=== PATIENT | male | born 1955 | race Caucasian/White ===

== ENCOUNTER 2020-04-15 11:34 | Inpatient (IN) | payer OTHER ==
[2020-04-15 12:44] LABS: Protime INR 0.9
[2020-04-15 12:45] LABS: Basophils % 0.8 % (0-1.3); Hematocrit 44.3 % (39.6-49.0); Lymphocytes % 24.3 % (15.3-44.8); RBC Red Blood Cell Count 5.07 M/uL (4.33-5.43)
[2020-04-15] MEDS ORDERED: ASPIRIN 81 MG CHEWABLE TABLET ONE (12:56)
--- NOTE | 2020-04-15 12:57 | RAD REPORT ---
EXAM DESCRIPTION: RAD - Chest Single View - 04/15/2020 12:49 pm CLINICAL HISTORY: CHEST PAIN COMPARISON: August 2011 TECHNIQUE: AP portable chest image was obtained 04/15/2020 12:49 pm . FINDINGS: Lung volumes are low accentuating interstitial pattern. No mass or consolidation. No signi ficant failure or volume overload. Minimal interstitial edema or infiltrate could be masked by the lo w lung volumes. Heart and vasculature are normal. No measurable pleural effusion and no pneumothorax. No acute bony abnormality seen. No acute aortic findings suspected. IMPRESSION: No acute cardiopulmonary process. Low lung volumes accentuate interstitial pattern potentially masking very minimal degrees of edema or infiltrate.
[2020-04-15 13:15] LABS: Albumin 3.8 g/dL (3.4-5.0); Bilirubin Direct 0.1 mg/dL (0-0.2); Bilirubin Total 0.5 mg/dL (0.2-1.0); Magnesium 1.9 mg/dL (1.8-2.4); Potassium 3.6 mmol/L (3.5-5.1); Protein, Total 6.8 g/dL (6.4-8.2)
[2020-04-15 13:16] LABS: Troponin (Emerg Dept Use Only) 1.35 ng/mL (0.0-0.045)
--- NOTE | 2020-04-15 14:07 | EDPHYS ---
Physician Documentation [facility] Name: Madhav Mendez Age: 65 yrs Sex: Male : 1955 Arrival Date: 04/15/2020 Time: 11:36 Bed 6 Private MD: Madhav Israel E ED Physician Chavo Avila HPI: 04/15 14:57 This 65 yrs old Male presents to ER via Ambulatory with complaints of Chest kdr Pain. 14:57 The patient or guardian reports chest pain that is located primarily in the substernal kdr area, anterior chest wall. Onset: pain has been intermittent with radiation down the posterior aspect of both arms with exertion. 17:29 The pain radiates to both arms, both shoulders. Associated signs and symptoms: kdr Pertinent positives: nausea, shortness of breath, Pertinent negatives: abdominal pain, cough. The chest pain is described as aching, burning, dull. Duration: The patient or guardian reports multiple episodes, that are intermittent, that wax and wane, with no pattern. Modifying factors: The symptoms are alleviated by remaining still, the symptoms are aggravated by activity, exertion, movement, walking. Severity of pain: At its worst the pain was mild moderate just prior to arrival, in the emergency department the pain is unchanged. The patient has not experienced similar symptoms in the past. The patient has not recently seen a physician. Historical: - Allergies: 11:47 No Known Allergies; iw - Home Meds: 11:47 atorvastatin 20 mg oral tab 1 tab once daily [Active]; metformin 500 mg Oral Tb24 1 tab iw once daily [Active]; losartan-hydrochlorothiazide 100-25 mg oral tab once daily [Active]; - PMHx: 11:47 Hypertension; Hyperlipidemia; Diabetes - NIDDM; iw - PSHx: 11:47 hemorrhoid; Knee surgery; iw - Immunization history:: Adult Immunizations not up to date. - Social history:: Smoking status: Patient reports the use of cigarette tobacco products, smokes one pack cigarettes per day. ROS: 17:29 Constitutional: Negative for fever, chills, and weight loss, Eyes: Negative for injury, kdr pain, redness, and discharge, ENT: Negative for injury, pain, and discharge, Neck: Negative for injury, pain, and swelling, Respiratory: Negative for shortness of breath, cough, wheezing, and pleuritic chest pain, Abdomen/GI: Negative for abdominal pain, nausea, vomiting, diarrhea, and constipation, Back: Negative for injury and pain, : Negative for injury, bleeding, discharge, and swelling, MS/Extremity: Negative for injury and deformity, Skin: Negative for injury, rash, and discoloration, Neuro: Negative for headache, weakness, numbness, tingling, and seizure activity. Psych: Negative for depression, anxiety, suicide ideation, homicidal ideation, and hallucinations, Allergy/Immunology: Negative for hives, rash, and allergies, Endocrine: Negative for neck swelling, polydipsia, polyuria, polyphagia, and marked weight changes, Hematologic/Lymphatic: Negative for swollen nodes, abnormal bleeding, and unusual bruising. 17:29 Cardiovascular: Positive for chest pain, Negative for edema, orthopnea, palpitations, paroxysmal nocturnal dyspnea. Exam: 11:55 ECG was reviewed by the Attending Physician. kdr 17:29 Constitutional: This is a well developed, well nourished patient who is awake, alert, kdr and in no acute distress. Head/Face: Normocephalic, atraumatic. Eyes: Pupils equal round and reactive to light, extra-ocular motions intact. Lids and lashes normal. Conjunctiva and sclera are non-icteric and not injected. Cornea within normal limits. Periorbital areas with no swelling, redness, or edema. Neck: Trachea midline, no thyromegaly or masses palpated, and no cervical lymphadenopathy. Supple, full range of motion without nuchal rigidity, or vertebral point tenderness. No Meningismus. Chest/axilla: Normal chest wall appearance and motion. Nontender with no deformity. No lesions are appreciated. Cardiovascular: Regular rate and rhythm with a normal S1 and S2. No gallops, murmurs, or rubs. Normal PMI, no JVD. No pulse deficits. Respiratory: Lungs have equal breath sounds bilaterally, clear to auscultation and percussion. No rales, rhonchi or wheezes noted. No increased work of breathing, no retractions or nasal flaring. Abdomen/GI: Soft, non-tender, with normal bowel sounds. No distension or tympany. No guarding or rebound. No evidence of tenderness throughout. Back: No spinal tenderness. No costovertebral tenderness. Full range of motion. Skin: Warm, dry with normal turgor. Normal color with no rashes, no lesions, and no evidence of cellulitis. MS/ Extremity: Pulses equal, no cyanosis. Neurovascular intact. Full, normal range of motion. Neuro: Awake and alert, GCS 15, oriented to person, place, time, and situation. Cranial nerves II-XII grossly intact. Motor strength 5/5 in all extremities. Sensory grossly intact. Cerebellar exam normal. Normal gait. Psych: Awake, alert, with orientation to person, place and time. Behavior, mood, and affect are within normal limits. Vital Signs: 11:41 BP 122 / 74; Pulse 96; Resp 18; Temp 98.2; Pulse Ox 96% on R/A; Weight 94.8 kg; Height iw 5 ft. 10 in. (177.80 cm); Pain 0/10; 12:27 BP 111 / 71; Pulse 109; Resp 15; Pulse Ox 98% ; bp 13:35 BP 118 / 92; Pulse 105; Resp 26; Pulse Ox 98% ; bp 14:27 BP 106 / 76; Pulse 98; Resp 24; Pulse Ox 97% ; rb1 16:42 BP 120 / 78; Pulse 93; Resp 20; Pulse Ox 98% ; bp 11:41 Body Mass Index 29.99 (94.80 kg, 177.80 cm) iw MDM: 14:05 Patient medically screened. kdr 17:29 Data reviewed: vital signs, nurses notes, lab test result(s), EKG, radiologic studies. kdr Counseling: I had a detailed discussion with the patient and/or guardian regarding: the historical points, exam findings, and any diagnostic results supporting the discharge/admit diagnosis, lab results, radiology results, the need for outpatient follow up. 04/15 11:47 Order name: Basic Metabolic Panel; Complete Time: 14:00 kdr 04/15 11:47 Order name: CBC with Diff; Complete Time: 14: kdr 04/15 11:47 Order name: LFT's; Complete Time: 14:00 kdr 04/15 11:47 Order name: Magnesium; Complete Time: 14:00 kdr 04/15 11:47 Order name: NT PRO-BNP; Complete Time: 14:00 kdr 04/15 11:47 Order name: PT-INR; Complete Time: 14:00 kdr 04/15 11:47 Order name: Troponin (emerg Dept Use Only); Complete Time: 14:00 kdr 04 11:47 Order name: XRAY Chest (1 view); Complete Time: 14:00 kdr /04 11:47 Order name: EKG; Complete Time: 11:48 kdr 04 11:47 Order name: Cardiac monitoring; Complete Time: 12:17 kdr /04 12:37 Order name: DD; Complete Time: 14:00 kdr 04/15 11:47 Order name: EKG - Nurse/Tech; Complete Time: 11:50 kdr 04 11:47 Order name: IV Saline Lock; Complete Time: 12:17 kdr 04 11:47 Order name: Labs collected and sent; Complete Time: 12:17 kdr 04/15 11:47 Order name: O2 Per Protocol; Complete Time: 11:50 kdr 04/15 11:47 Order name: O2 Sat Monitoring; Complete Time: 11:50 kdr 04 15:22 Order name: NPO; Complete Time: 15:22 bp EC:55 Rate is 101 beats/min. Rhythm is irregular, Sinus arrythmia with PACs. QRS Hayes is kdr Normal. [place] interval is normal. QRS interval is normal. QT interval is normal. Clinical impression: NSR w/ Non-specific ST/T Changes, Sinus arrythmia, and Sinus tachycardia. Administered Medications: 12:45 Drug: Aspirin Chewable Tablet 324 mg Route: PO; rb1 16:42 Follow up: Response: No adverse reaction bp 16:00 Drug: HEParin 5000 units {Co-Signature: aa5 (Ivonne Magallon RN).} Route: IV; Rate: bp bolus; Site: right forearm; 16:41 Follow up: IV Status: Completed infusion; IV Intake: 1ml bp 16:01 Drug: Heparin ([place] Drip) 12 units/kg/hr - (HEParin 22257 units, D5W 500 ml) bp {Co-Signature: aa5 (Ivonne Magallon RN).} Route: IV; Rate: calculated rate; Site: right forearm; 16:42 Follow up: IV Status: Infusion continued upon admission bp Disposition: 04/15/20 14:05 Hospitalization ordered by Nimesh Omer for Observation. Preliminary diagnosis are Other chest pain, Acute coronary syndrome. - Bed requested for [facility] ER HOLD. - Status is Observation. bp - Condition is Fair. - Problem is new. - Symptoms have improved. Signatures: Dispatcher [employer] EDMS Chavo Avila MD MD kdr Marisol Hicks, RN RN Luis Fernando Cole em1 Leeanna Larson, RN RN rb1 Vince Alexander, SOLITARIO RN bp Ivonne Magallon RN aa5 Corrections: (The following items were deleted from the chart) 15:57 14:05 Hospitalization Ordered by Nimesh Omer DO for Observation. Preliminary em1 diagnosis is Other chest pain; Acute coronary syndrome. Bed requested for Telemetry/MedSurg (observation). Status is Observation. Condition is Fair. Problem is new. Symptoms have improved. kdr 17:07 15:57 04/15/2020 14:05 Hospitalization Ordered by Nimesh Omer DO for Observation. bp Preliminary diagnosis is Other chest pain; Acute coronary syndrome. Bed requested for [facility] ER HOLD. Status is Observation. Condition is Fair. Problem is new. Symptoms have improved. em1
--- NOTE | 2020-04-15 14:07 | ER ---
Nurse's Notes [facility] Name: Madhav Mendez Age: 65 yrs Sex: Male : 1955 Arrival Date: 04/15/2020 Time: 11:36 Bed 6 Private MD: Madhav Israel E Diagnosis: Other chest pain;Acute coronary syndrome Presentation: 04/15 11:41 Chief complaint: Patient states: chest pains and SOB, pain down arms, intermittent iw since Sunday, was seen at cardiovascular clinic today and told he had Afib, pain described as tension and is midsternal, also feels burning sensation down both arms, and is SOB on exertion. Coronavirus screen: Proceed with normal triage. Patient denies a cough. Patient denies shortness of breath or difficulty breathing. Patient denies measured and/or subjective temperature greater than 100.4F prior to today's visit. Patient denies travel on a cruise ship or to a country the [facility] currently lists as an affected area. Patient denies contact with known and/or suspected case of COVID-19. Ebola Screen: Patient negative for fever greater than or equal to 101.5 degrees Fahrenheit, and additional compatible Ebola Virus Disease symptoms Patient denies exposure to infectious person. Patient denies travel to an Ebola-affected area in the 21 days before illness onset. No symptoms or risks identified at this time. Initial Sepsis Screen: Does the patient meet any 2 criteria? No. Patient's initial sepsis screen is negative. Does the patient have a suspected source of infection? No. Patient's initial sepsis screen is negative. Risk Assessment: Do you want to hurt yourself or someone else? Patient reports no desire to harm self or others. Onset of symptoms was April 08, 2020. 11:41 Method Of Arrival: Ambulatory iw 11:41 Acuity: RAMOS 3 iw Triage Assessment: 11:47 General: Appears in no apparent distress. uncomfortable, Behavior is cooperative, bp appropriate for age, anxious. Pain: Complains of pain in chest. EENT: No deficits noted. Neuro: No deficits noted. Cardiovascular: Chest pain is described as Pain is 6 out of 10 on a pain scale. quality is pressure, is located in substernal area radiates to bilateral arm(s) began 1 day ago. Respiratory: No deficits noted. GI: No signs and/or symptoms were reported involving the gastrointestinal system. : No signs and/or symptoms were reported regarding the genitourinary system. Derm: No deficits noted. Musculoskeletal: No deficits noted. Historical: - Allergies: 11:47 No Known Allergies; iw - Home Meds: :47 atorvastatin 20 mg oral tab 1 tab once daily [Active]; metformin 500 mg Oral Tb24 1 tab iw once daily [Active]; losartan-hydrochlorothiazide 100-25 mg oral tab once daily [Active]; - PMHx: 11:47 Hypertension; Hyperlipidemia; Diabetes - NIDDM; iw - PSHx: 11:47 hemorrhoid; Knee surgery; iw - Immunization history:: Adult Immunizations not up to date. - Social history:: Smoking status: Patient reports the use of cigarette tobacco products, smokes one pack cigarettes per day. Screenin:53 Abuse screen: Denies threats or abuse. Denies injuries from another. Nutritional bp screening: No deficits noted. Tuberculosis screening: No symptoms or risk factors identified. Fall Risk None identified. Assessment: 11:47 General: SEE TRIAGE NOTE. bp 12:27 Reassessment: ALL CURRENT ORDERS COMPLETED, RESULTS PENDING. bp 12:51 Reassessment: Patient appears in no apparent distress at this time. Patient and/or rb1 family updated on plan of care and expected duration. Pain level reassessed. Patient is alert, oriented x 3, equal unlabored respirations, skin warm/dry/pink. 15:00 Reassessment: PT RESTING QUIETLY, ADMIT PENDING. bp 16:41 Reassessment: PT ANOOP WITH INSTRUMENT OPERATOR PERSONNEL. bp Vital Signs: 11:41 BP 122 / 74; Pulse 96; Resp 18; Temp 98.2; Pulse Ox 96% on R/A; Weight 94.8 kg; Height iw 5 ft. 10 in. (177.80 cm); Pain 0/10; 12:27 BP 111 / 71; Pulse 109; Resp 15; Pulse Ox 98% ; bp 13:35 BP 118 / 92; Pulse 105; Resp 26; Pulse Ox 98% ; bp 14:27 BP 106 / 76; Pulse 98; Resp 24; Pulse Ox 97% ; rb1 16:42 BP 120 / 78; Pulse 93; Resp 20; Pulse Ox 98% ; bp 11:41 Body Mass Index 29.99 (94.80 kg, 177.80 cm) ED Course: 11:36 Patient arrived in ED. as 11:36 Madhav Israel MD is Private Physician. as 11:39 Chavo Avila MD is Attending Physician. kdr 11:45 Triage completed. iw 11:47 Arm band placed on. iw 11:49 Vince Alexander, RN is Primary Nurse. bp 11:53 Patient has correct armband on for positive identification. Bed in low position. Call bp light in reach. Side rails up X2. monitor car operator on. Pulse ox on. NIBP on. 12:20 Inserted saline lock: 20 gauge in right forearm, using aseptic technique. Blood bp collected. 12:49 XRAY Chest (1 view) In Process Unspecified. EDMS 14:04 Nimesh Omer DO is Hospitalizing Provider. kdr Administered Medications: 12:45 Drug: Aspirin Chewable Tablet 324 mg Route: PO; rb1 16:42 Follow up: Response: No adverse reaction bp 16:00 Drug: HEParin 5000 units {Co-Signature: aa5 (Ivonne Magallon RN).} Route: IV; Rate: bp bolus; Site: right forearm; 16:41 Follow up: IV Status: Completed infusion; IV Intake: 1ml bp 16:01 Drug: Heparin ([place] Drip) 12 units/kg/hr - (HEParin 29913 units, D5W 500 ml) bp {Co-Signature: aa5 (Ivonne Magallon RN).} Route: IV; Rate: calculated rate; Site: right forearm; 16:42 Follow up: IV Status: Infusion continued upon admission bp Intake: 16:41 IV: 1ml; Total: 1ml. bp Outcome: 14:05 Decision to Hospitalize by Provider. kdr 17:07 Patient left the ED. bp Signatures: Dispatcher [employer] EDMS Chavo Avila MD MD kdr Jayda Cole Irene, SOLITARIO RN iw Leeanna Larson RN RN rb1 Vince Alexander, SOLITARIO RN bp Ivonne Magallon RN aa5 Corrections: (The following items were deleted from the chart) 11:47 11:41 Pulse 96bpm; Resp 18bpm; Pulse Ox 96% RA; Temp 98.2F; 94.8 kg; Height 5 ft. 10 iw in.; BMI: 29.9; Pain 0/10; iw
[2020-04-15] MEDS ORDERED: HEPARIN 5000 UNIT/ML 1 ML VIAL ONE ×3 (15:32→17:02)
[2020-04-15] MEDS ORDERED: HEPARIN/D5W 25,000 UNIT/500 ML BAG IV ONE (15:32)
--- NOTE | 2020-04-15 15:40 | P.HP ---
Certification for Inpatient Patient admitted to: Inpatient With expected LOS: >2 Midnights Patient will require the following post-hospital care: None Practitioner: I am a practitioner with admitting privileges, knowledge of patient current condition, hospital course, and medical plan of care. Services: Services provided to patient in accordance with Admission requirements found in Title 42 Section 412.3 of the Code of Federal Regulations <Lexa Monroy - Last Filed: 04/15/20 15:32> Patient History Date of Service: 04/15/20 Primary Care Provider: Lindy Reason for admission: NSTEMI History of Present Illness: 65-year-old male with past medical history including hypertension, diabetes mellitus type 2, hyperlipidemia presented to the emergency department with a 1.5 week history of intermittent chest tightness and dyspnea on exertion. Patient reports that the last 2 days the symptoms have become worse. Patient reported for an appointment with cardiology today and was referred to the emergency department for further evaluation management. During patient's evaluation in the emergency department patient was found to have an elevated troponin at 1.35 an EKG that shows normal sinus rhythm with PACs. At this time ED provider reached out to the hospitalist team for further evaluation management. When I saw the patient in the emergency department he appeared stable vital signs within normal limits. Patient denies any chest pain at this time. Patient reports chest pain is primarily exertional in nature. No significant ST elevation on ECG. Cardiology will be contacted immediately and patient be admitted for further evaluation and management. Home medications list reviewed: Yes - Past Medical/Surgical History Has patient received pneumonia vaccine in the past: No Diabetic: Yes -: Diabetes mellitus type 2 -: Hypertension -: Tobacco abuse -: Hyperlipidemia -: Left knee arthroscopy Psychosocial/ Personal History: Patient lives at home with his . - Family History Father -: Heart disease Sister -: Hypertension - Social History Smoking Status: Current every day smoker Counseled patient to stop smoking for: less than 10 minutes Alcohol use: Yes CD- Drugs: No Caffeine use: Yes Place of Residence: Home <Lexa Monroy - Last Filed: 04/15/20 15:32> Date of Service: 04/15/20 <Nimesh Omer - Last Filed: 04/15/20 17:57> Review of Systems General: Unremarkable Eyes: Unremarkable ENT: Unremarkable Respiratory: SOB with Excertion Cardiovascular: Chest Pain, As per HPI Gastrointestinal: Unremarkable Genitourinary: Unremarkable Musculoskeletal: Unremarkable Integumentary: Unremarkable Neurological: Unremarkable Lymphatics: Unremarkable <Lexa Monroy - Last Filed: 04/15/20 15:32> Physical Examination - Physical Exam General: Alert, In no apparent distress, Oriented x3, Obese HEENT: Atraumatic, Normocephalic Neck: Supple Respiratory: Clear to auscultation bilaterally, Normal air movement Cardiovascular: No edema, Normal S1 S2 Capillary refill: <2 Seconds Gastrointestinal: Normal bowel sounds, Soft and benign Musculoskeletal: No contractures, No erythema, No tenderness, No warmth Integumentary: No breakdown, No significant lesion Neurological: Normal speech, Normal tone - Studies Laboratory Data (last 24 hrs) 04/15/20 12:20: PT 10.6, INR 0.90 04/15/20 12:20: WBC 8.3, Hgb 15.3, Hct 44.3, Plt Count 222 04/15/20 12:20: Sodium 137, Potassium 3.6, BUN 14, Creatinine 0.94, Glucose 150 H, Magnesium 1.9, Total Bilirubin 0.5, AST 21, ALT 36, Alkaline Phosphatase 78 <Lexa Monroy - Last Filed: 04/15/20 15:32> - Studies Laboratory Data (last 24 hrs) 04/15/20 12:20: PT 10.6, INR 0.90 04/15/20 12:20: WBC 8.3, Hgb 15.3, Hct 44.3, Plt Count 222 04/15/20 12:20: Sodium 137, Potassium 3.6, BUN 14, Creatinine 0.94, Glucose 150 H, Magnesium 1.9, Total Bilirubin 0.5, AST 21, ALT 36, Alkaline Phosphatase 78 <Nimesh Omer - Last Filed: 04/15/20 17:57> Assessment and Plan - Plan Assessment Chest pain and dyspnea on exertion with elevated troponin suspect NSTEMI Hypertension Diabetes mellitus type 2 Hyperlipidemia Tobacco abuse Obesity Plan Chest pain and dyspnea on exertion with elevated troponin suspect NSTEMI: Cardiology has been consulted on this case. Cardiology wishes to perform heart catheterization as early as this evening with possibly tomorrow morning. In the mean time, patient we placed on heparin IV infusion. Patient also given aspirin and metoprolol. Patient is to remain NPO at this time. Echocardiogram also ordered. Patient to remain on telemetry throughout this hospitalization. Anticipate disposition in the next 24-48 hr depending on results from heart catheterization. Hypertension: Will continue patient's home medications and adjust as necessary and in coordination with cardiology. Diabetes mellitus type 2: Patient will have a.c. HS Accu-Cheks and sliding scale insulin therapy. Will obtain A1c to evaluate patient's glycemic control. Hyperlipidemia: Will obtain and continue patient's home medications. Tobacco abuse: Will job counselor on tobacco cessation and provide resources. Obesity: Will provide dietary and lifestyle counseling and intervention. Discharge Plan: Home Plan to discharge in: Greater than 2 days - Advance Directives Does patient have a Living Will: No Does patient have a Durable POA for Healthcare: No - Code Status/Comfort Care Code Status Assessed: Yes (Patient is full code) Critical Care: No Time Spent Managing Pts Care (In Minutes): 55 <Lexa Monroy - Last Filed: 04/15/20 15:32> - Plan Patient seen and examined with nurse practitioner. Case discussed at length with cardiology. Cardiology plans for heart catheterization today. Await findings. Agree with plan of care. <Nimesh Omer - Last Filed: 04/15/20 17:57>
[2020-04-15] MEDS ORDERED: ACETAMINOPHEN 500 MG TAB PO PRN (15:47)
[2020-04-15] MEDS ORDERED: ONDANSETRON 4 MG/2 ML VIAL IV PRN ×2 (15:47→21:55)
[2020-04-15] MEDS ORDERED: HEPARIN/D5W 25,000 UNIT/500 ML BAG IV SCH (16:00)
[2020-04-15] MEDS: NA CHLORIDE 0.9% 1,000 ML IV SCH ×2 (16:00→21:29)
[2020-04-15] MEDS: INSULIN -REGULAR HUMAN 50 UNIT/0.5 ML ML SQ SCH ×2 (16:30→21:00)
[2020-04-15] MEDS ORDERED: MIDAZOLAM HCL 2 MG/2 ML INJ ONE ×2 (17:01→17:21)
[2020-04-15] MEDS ORDERED: FENTANYL CITR 100 MCG/2 ML ONE (17:01)
[2020-04-15] MEDS ORDERED: ATROPINE SULF 1 MG/10 ML SYR IV ONE (17:01)
[2020-04-15] MEDS ORDERED: NICARDIPINE HCL 25 MG/10 ML IV ONE (17:01)
[2020-04-15] MEDS ORDERED: NA CHLORIDE 0.9% 500 ML ONE ×2 (17:14→17:15)
[2020-04-15] MEDS ORDERED: HEPA 1000U/500MLS 1,000 UNIT/500 ML BAG IV ONE (17:39)
[2020-04-15] MEDS ORDERED: HEPA 1000U/500MLS 2,000 UNIT/1,000 ML BAG IV ONE (17:50)
[2020-04-15] MEDS ORDERED: TICAGRELOR 90 MG TABLET PO ONE (18:01)
[2020-04-15] MEDS ORDERED: ACETAMINOPHEN 325 MG TABLET PO PRN (21:52)
[2020-04-15] MEDS ORDERED: ZOLPIDEM TARTRATE 5 MG TABLET PO PRN (21:55)
[2020-04-15 22:34] VITALS: BMI 29.9
[2020-04-16 00:45] LABS: CKMB Creatine Kinase MB 2.8 ng/mL (0.3-3.6)
[2020-04-16 00:47] LABS: Troponin I 1.6 ng/mL (0.0-0.045)
[2020-04-16 05:19] LABS: Absolute Lymphocytes (CBC) 2.3 K/uL (0.7-4.9); Basophils % 0.4 % (0-1.3); Lymphocytes % 28.6 % (15.3-44.8); RBC Red Blood Cell Count 4.69 M/uL (4.33-5.43)
[2020-04-16 05:40] LABS: BUN Blood Urea Nitrogen 16 mg/dL (7-18); Bicarbonate 25 mmol/L (21-32); Glucose Level 154 mg/dL (74-106); HDL Cholesterol 24 mg/dL (40-60); Potassium 3.4 mmol/L (3.5-5.1); Sodium Level 136 mmol/L (136-145)
[2020-04-16 05:54] LABS: LDL, Direct 94 mg/dL (100-129)
[2020-04-16] MEDS ORDERED: METOPROLOL XL 25 MG TAB PO SCH (06:00)
[2020-04-16 06:22] LABS: CKMB Creatine Kinase MB 3.1 ng/mL (0.3-3.6)
[2020-04-16 06:24] LABS: Troponin I 2.25 ng/mL (0.0-0.045)
[2020-04-16] MEDS: INSULIN -REGULAR HUMAN 50 UNIT/0.5 ML ML SQ SCH ×2 (07:30→11:30)
[2020-04-16] MEDS ORDERED: POTASSIUM CL SA 10 MEQ TAB PO ONE (09:00)
[2020-04-16] MEDS ORDERED: ASPIRIN EC 81 MG TAB PO SCH (09:00)
[2020-04-16 09:45] VITALS: O2SAT 95
--- NOTE | 2020-04-16 11:50 | EKG ---
Test Date: 2020-04-16 Test Time: 09:15:14 [place] Staff Member: TRANG MEASUREMENT RESULTS: Intervals: Rate: 81 MD: 226 QRSD: 88 QT: 344 QTc: 399 [place]: P: -11 MD: 226 QRS: 78 T: 93 INTERPRETIVE STATEMENTS: Sinus rhythm with 1st degree AV block with premature supraventricular complexes Nonspecific T wave abnormality Abnormal ECG Compared to ECG 04/15/2020 11:53:31 First degree AV block now present Sinus tachycardia no longer present T-wave abnormality still present Electronically Signed On 04-16-20 11:50:03 CDT by Isreal Andrews
--- NOTE | 2020-04-16 11:51 | P.DS ---
Admission Date: 04/15/20 Discharge Date: 04/16/20 Primary Care Provider: Lindy Disposition: ROUTINE DISCHARGE Discharge Condition: GOOD Reason for Admission: NSTEMI Consultations: Cardiology-Dr. Luciano Procedures: Heart Catheterization: Significant Coronary artery disease noted. 2 stents placed. Please review report for details. Medical Problem List: Chest pain/dyspnea with exertion with noted elevated troponin secondary to NSTEMI status post heart catheterization showing significant CAD with 2 stents placed Hypertension Diabetes mellitus type 2 with hyperglycemia Mixed Hyperlipidemia Tobacco abuse Obesity, BMI 30 Brief History of Present Illness: 65-year-old male with history of diabetes, hypertension, hyperlipidemia and tobacco abuse. Patient presented with chest pain and shortness of breath. Patient was initially evaluated by Cardiology at their o ice. Patient was sent over for further evaluation. Patient found to have atrial fibrillation with elevated troponin secondary to NSTEMI. Patient admitted for further evaluation and treatment. Hospital Course: Patient presented with chest pain/dyspnea with exertion with noted elevated troponin secondary to NSTEMI. Patient was seen and evaluated by Cardiology. Cardiology recommended heart catheterization to further evaluate. Heart catheterization performed showed significant CAD. 2 stents placed. Patient did well post heart catheterization. At discharge patient will continue with aspirin 81 mg daily, Brilinta 90 mg 1 pill twice daily, metoprolol XL 25 mg daily, losartan 25 mg daily, Lipitor 80 mg daily, and fish oil 2 g twice daily. Patient will follow up with cardiology in 1 week. Patient will follow up with cardiology to determine when the patient can return back to work. There was some question if patient had paroxysmally atrial fibrillation. This was reassessed. Patient had P waves, patient likely with PACs. Patient now in sinus rhythm. No need for further evaluation. Patient will continue with above medications. This can be further evaluated by Cardiology as an outpatient. Patient with hypertension. Patient previously on losartan hydrochlorothiazide. Medications have been adjusted. Patient will no longer take losartan hydroch lorothiazide. Patient will continue with metoprolol XL 25 mg daily and losartan 25 mg daily. Recommend to maintain blood pressure less than 120/80. Further adjustment in medication can be done by cardiology. Patient with diabetes mellitus type 2 with hyperglycemia. A1c 8.1. Patient will have metformin increased at discharge for better control. At discharge she will continue with metformin 500 mg twice daily. Recommend to maintain blood sugar less 140 fasting and less than 200 after meals. Further adjustment in medication may be required. This can be further addressed by his PCP. Patient with mixed hyperlipidemia. LDL 94, triglyceride 824. At discharge patient will have his cholesterol medication adjusted. At discharge he will continue with Lipitor 80 mg daily and fish oil 2 g twice daily. Recommend to recheck fasting lipid panel, CMP in 4-6 weeks to monitor his progress. Further adjustment can be done by his PCP or cardiology. Patient with tobacco abuse. Tobacco cessation addressed in detail. Education will be provided. Vital Signs/Physical Exam: Temp Pulse Resp BP Pulse Ox 97.1 F 82 16 140/81 97 04/16/20 08:00 04/16/20 08:00 04/16/20 08:00 04/16/20 08:00 04/16/20 08:00 General: Alert, In no apparent distress, Oriented x3, Cooperative HEENT: Atraumatic Neck: Supple Respiratory: Clear to auscultation bilaterally, Normal air movement Cardiovascular: Normal pulses, Regular rate/rhythm Gastrointestinal: Normal bowel sounds, Soft and benign, Non-distended, No tenderness, No masses, No rebound, No guarding Musculoskeletal: No erythema, No tenderness, No warmth Integumentary: No tenderness/swelling, No erythema, No warmth, No cyanosis Neurological: Normal speech, Normal strength at 5/5 x4 extr, Normal tone, Normal affect Laboratory Data at Discharge: WBC 8.0 K/uL (4.3-10.9) 04/16/20 04:30 Hgb 14.3 g/dL (13.6-17.9) 04/16/20 04:30 Hct 41.0 % (39.6-49.0) 04/16/20 04:30 Plt Count 178 K/uL (152-406) 04/16/20 04:30 PT 10.6 SECONDS (9.5-12.5) 04/15/20 12:20 INR 0.90 04/15/20 12:20 Sodium 136 mmol/L (136-145) 04/16/20 04:30 Potassium 3.4 mmol/L (3.5-5.1) L 04/16/20 04:30 BUN 16 mg/dL (7-18) 04/16/20 04:30 Creatinine 0.99 mg/dL (0.55-1.3) 04/16/20 04:30 Glucose 154 mg/dL (74-106) H 04/16/20 04:30 Magnesium 2.0 mg/dL (1.8-2.4) 04/16/20 04:30 Total Bilirubin 0.5 mg/dL (0.2-1.0) 04/15/20 12:20 AST 21 U/L (15-37) 04/15/20 12:20 ALT 36 U/L (12-78) 04/15/20 12:20 Alkaline Phosphatase 78 U/L (45-117) 04/15/20 12:20 Troponin I 2.25 ng/mL (0.0-0.045) H* 04/16/20 04:30 Triglycerides 824 mg/dL (<150) H 04/16/20 04:30 Cholesterol 196 mg/dL (<200) 04/16/20 04:30 LDL Cholesterol Direct 94 mg/dL (100-129) L 04/16/20 04:30 HDL Cholesterol 24 mg/dL (40-60) L 04/16/20 04:30 Cholesterol/HDL Ratio 8.17 04/16/20 04:30 Home Medications: ALPRAZolam [Alprazolam] 1 mg PO TID PRN 04/15/20 Atorvastatin Calcium [Lipitor] 80 mg PO DAILY #30 tablet 04/16/20 Docosahexanoic AC/Epa [Fish Oil 1,000 MG CAP] 2,000 mg PO BID #120 cap 04/16/20 Losartan Potassium 25 mg PO DAILY #30 tablet 04/16/20 Metformin ER [Glucophage ER*] 1 tab PO BID #60 tab.sa 04/16/20 Metoprolol Succinate [Toprol Xl*] 25 mg PO [id number] #30 tab 04/16/20 Ticagrelor [Brilinta] 90 mg PO BID #60 tablet 04/16/20 New Medications: Ticagrelor [Brilinta] 90 mg PO BID #60 tablet Docosahexanoic AC/Epa [Fish Oil 1,000 MG CAP] 2,000 mg PO BID #120 cap Metformin ER [Glucophage ER*] 1 tab PO BID #60 tab.sa Atorvastatin Calcium [Lipitor] 80 mg PO DAILY #30 tablet Losartan Potassium 25 mg PO DAILY #30 tablet Metoprolol Succinate [Toprol Xl*] 25 mg PO [id number] #30 tab Patient Discharge Instructions: 1. Recommend follow up with PCP in 1 week to follow up this hospitalization. 2. Patient presented with chest pain/dyspnea with exertion with noted elevated troponin secondary to NSTEMI. Patient was seen and evaluated by Cardiology. Cardiology recommended heart catheterization to further evaluate. Heart catheterization performed showed significant CAD. 2 stents placed. Patient did well post heart catheterization. At discharge patient will continue with aspirin 81 mg daily, Brilinta 90 mg 1 pill twice daily, metoprolol XL 25 mg daily, losartan 25 mg daily, Lipitor 80 mg daily, and fish oil 2 g twice daily. Patient will follow up with cardiology in 1 week. Patient will follow up with cardiology to determine when the patient can return back to work. 3. There was some question if patient had paroxysmally atrial fibrillation. This was reassessed. Patient had P waves, patient likely with PACs. Patient now in sinus rhythm. No need for further evaluation. Patient will continue with above medications. This can be further evaluated by Cardiology as an outpatient. 4. Patient with hypertension. Patient previously on losartan hydrochlorothiazide. Medications have been adjusted. Patient will no longer take losartan hydrochlorothiazide. Patient will continue with metoprolol XL 25 mg daily and losartan 25 mg daily. Recommend to maintain blood pressure less than 120/80. Further adjustment in medication can be done by cardiology. 5. Patient with diabetes mellitus type 2 with hyperglycemia. A1c 8.1. Patient will have metformin increased at discharge for better control. At discharge she will continue with metformin 500 mg twice daily. Recommend to maintain blood sugar less 140 fasting and less than 200 after meals. Further adjustment in medication may be required. This can be further addressed by his PCP. 6. Patient with mixed hyperlipidemia. LDL 94, triglyceride 824. At discharge patient will have his cholesterol medication adjusted. At discharge h e will continue with Lipitor 80 mg daily and fish oil 2 g twice daily. Recommend to recheck fasting lipid panel, CMP in 4-6 weeks to monitor his progress. Further adjustment can be done by his PCP or cardiology. 7. Patient with tobacco abuse. Tobacco cessation addressed in detail. Education will be provided. Diet: AHA Activity: Ad gigi Time spent managing pt's care (in minutes): 55
--- NOTE | 2020-04-16 11:54 | EKG ---
Test Date: 2020-04-15 Test Time: 11:53:31 Reel Repairer: HANK MEASUREMENT RESULTS: Intervals: Rate: 101 ID: [id number] QRSD: 90 QT: 364 QTc: 471 [place]: P: ID: [id number] QRS: 88 T: 87 INTERPRETIVE STATEMENTS: Sinus tachycardia with premature atrial complexes Nonspecific T wave abnormality Abnormal ECG Compared to ECG 08/28/2011 15:45:23 Atrial premature complex(es) now present T-wave abnormality now present Sinus rhythm no longer present Right-axis deviation no longer present Electronically Signed On 04-16-20 11:50:31 CDT by Isreal Andrews
[2020-04-16 12:17] VITALS: BP 137/86; TEMP 97.4
--- NOTE | 2020-04-16 20:45 | PN ---
Date of Progress Note: 04/16/2020 Subjective: Mr. Mendez was admitted emergently from our office yesterday for unstable angina. He u nderwent an emergent heart catheterization by Dr. Luciano and myself yesterday. He was found to have a severe mid LAD lesion, severe mid RCA lesion. He underwent stent of both of those via right wrist approach. Overnight, he did well. He has no complaint. Physical Examination: Vital Signs: Stable. He is afebrile. He is in sinus rhythm. Chest: Clear. Cardiac: Revealed a regular rhythm and rate without any murmurs, gallops, or rubs. Extremities: Hi s right wrist site appeared to be intact. Has good radial pulses. Plan: He will be going home today on his home medication which include statins, beta-blockers, and a spirin. We will add Plavix to his regimen. He will come to see Dr. Luciano on next for foll owup. ROSINA/JAYDON Voice ID: [id number] Report ID: [id number]
== END 2020-04-16 13:02 | disposition home or self-care (01) | DRG 247 ==
LOC: ER 11:34 → ERHOLD 15:18 → 2ND 19:13
PROVIDERS: ADMIT Family Medicine; ATTEND Family Medicine
PROC: 027135Z Dilation of Coronary Artery, Two Arteries with Two Drug-eluting Intraluminal Devices, Percutaneous Approach (ICD-10-PCS; principal; 2020-04-15)
PROC: 4A023N7 Measurement of Cardiac Sampling and Pressure, Left Heart, Percutaneous Approach (ICD-10-PCS; 2020-04-15)
PROC: B2111ZZ Fluoroscopy of Multiple Coronary Arteries using Low Osmolar Contrast (ICD-10-PCS; 2020-04-15)
DX: I21.4 Non-ST elevation (NSTEMI) myocardial infarction (principal); I10 Essential (primary) hypertension; F17.200 Nicotine dependence, unspecified, uncomplicated; E11.65 Type 2 diabetes mellitus with hyperglycemia; E78.2 Mixed hyperlipidemia; I48.0 Paroxysmal atrial fibrillation; E66.9 Obesity, unspecified; Z68.30 Body mass index [BMI] 30.0-30.9, adult; Z79.84 Long term (current) use of oral hypoglycemic drugs; Z79.899 Other long term (current) drug therapy
CPT/HCPCS: 36415; 71045; 80048; 80061; 80076; 82550; 82553; 82947; 83036; 83735; 83880; 84484; 85025; 85347; 85379; 85610; 92928; 92929; 93005; 93458; 96365; 99285; C1725; C1893; J1644; J2250; J3010; J7030; J7040

== ENCOUNTER 2023-03-28 10:30 | Day surgery (SDC) | payer OTHER ==
--- NOTE | 2023-03-27 13:36 | RAD REPORT ---
EXAM DESCRIPTION: RAD - Chest Pa And Lat (2 Views) - 03/27/2023 1:26 pm CLINICAL HISTORY: pre op pending BRIANDA/[facility] Chest pain. COMPARISON: 09/06/2020 TECHNIQUE: PA and lateral views of the chest were obtained. FINDINGS: The lungs are hyperexpanded compatible with COPD. The heart is upper limit of normal in si ze. No fracture or aggressive bony process. IMPRESSION: COPD without acute process identified. The USPSTF recommends annual screening for lung cancer with low-dose CT (LDCT) in adults aged 50 to 8 0 years who have a 20 pack-year smoking history and currently smoke or have quit within the past 15 y ears.
[2023-03-27 13:37] LABS: Absolute Lymphocytes (CBC) 1.8 K/uL (0.7-4.9); Hematocrit 48.3 % (39.6-49.0); Lymphocytes % 21.7 % (15.3-44.8); MCV 88.3 fL (80-100); MPV 8.1 fL (7.6-11.3); RBC Red Blood Cell Count 5.47 M/uL (4.33-5.43)
[2023-03-27 13:46] LABS: Protime INR 1.15
[2023-03-27 13:47] LABS: Potassium 3.4 mEq/L (3.5-5.1)
[~2023-03-28 10:30] MED LIST: NA CHLORIDE 0.9% 500 ML ONE
[2023-03-28] MEDS ORDERED: FENTANYL CITR 100 MCG/2 ML ONE (10:48)
[2023-03-28] MEDS ORDERED: MIDAZOLAM HCL 0 ML ONE (10:49)
[2023-03-28] MEDS ORDERED: LIDOCAINE VISCOUS 2% SOLN 15 ML UDC ONE (10:50)
[2023-03-28] MEDS ORDERED: ATROPINE SULF 1 MG/10 ML SYR IV ONE (10:50)
[2023-03-28] MEDS ORDERED: NALOXONE 0.4 MG/ML VIAL ONE (10:50)
[2023-03-28] MEDS ORDERED: FLUMAZENIL 0.1 MG/ML (5 mL VIAL) IV ONE (10:50)
[2023-03-28] MEDS ORDERED: METOPROLOL TARTRATE 5 MG/5 ML INJ IV ONE (10:51)
[2023-03-28] MEDS ORDERED: PHENOL 1.4% ORAL SPRAY 180ML ONE (10:51)
--- NOTE | 2023-03-28 11:45 | EKG ---
Test Date: 2023-03-28 Test Time: 11:15:02 Saw Boss: BOSSMAN MEASUREMENT RESULTS: Intervals: Rate: 55 [place]: 232 QRSD: 78 QT: 438 QTc: 419 [place]: P: [place]: 232 QRS: 59 T: 101 INTERPRETIVE STATEMENTS: Sinus bradycardia with 1st degree AV block Cannot rule out Anterior infarct, age undetermined Abnormal ECG Compared to ECG 03/27/2023 13:11:47 First degree AV block now present Myocardial infarct finding now present Electronically Signed On 03-28-23 11:44:24 CDT by Isreal Andrews
--- NOTE | 2023-03-29 11:25 | EKG ---
Test Date: 2023-03-27 Test Time: 13:11:47 Chemist Proteins: VIJI MEASUREMENT RESULTS: Intervals: Rate: 55 MD: 226 QRSD: 76 QT: 432 QTc: 413 [place]: P: -52 MD: 226 QRS: 18 T: 89 INTERPRETIVE STATEMENTS: Unusual P axis, possible ectopic atrial bradycardia with undetermined rhythm irregularity Abnormal ECG Compared to ECG 09/07/2020 13:50:11 Sinus rhythm no longer present Atrial premature complex(es) no longer present Electronically Signed On 03-29-23 11:20:38 CDT by Isreal Andrews
== END 2023-03-28 11:00 | disposition home or self-care (01) ==
LOC: CCL 10:30
PROVIDERS: ATTEND Internal Medicine
DX: I48.91 Unspecified atrial fibrillation (principal); Z53.8 Procedure and treatment not carried out for other reasons; I25.10 Atherosclerotic heart disease of native coronary artery without angina pectoris; I44.0 Atrioventricular block, first degree; I10 Essential (primary) hypertension; E78.5 Hyperlipidemia, unspecified; E11.9 Type 2 diabetes mellitus without complications; Z79.01 Long term (current) use of anticoagulants; Z79.899 Other long term (current) drug therapy; Z87.891 Personal history of nicotine dependence
CPT/HCPCS: 93005 ×2; 85025; 80048; 36415; 85610; 82947; 85730; 71046; J7040; J0461; J2250; J2310; J3010